=== PATIENT | male | born 1990 | race Caucasian/White ===

== ENCOUNTER 2018-06-06 13:49 | Emergency (ER) | payer OTHER, SELFPAY ==
[2018-06-06 13:53] VITALS: BP 130/74; PULSE 93; RESP 18; TEMP 36.8; O2SAT 100
--- NOTE | 2018-06-06 13:55 | ED.UPPEXIN ---
HPI - Extremity Injury (Upper) General Chief Complaint: Extremity Injury, Upper Stated Complaint: CRUSHED LEFT 1ST FINGER Time Seen by Provider: 06/06/18 13:54 Source: patient Mode of arrival: ambulatory Limitations: no limitations History of Present Illness HPI narrative: Right-hand dominant 28-year-old male here for evaluation of a crush injury to his left index finger. Patient states that it occurred at work just prior to arrival. He states that he cut it on an engine. Unknown last tetanus shot. Wrapped came to the emergency department for evaluation Related Data Previous Rx's Medication Instructions Recorded ciprofloxacin HCl 500 mg PO BID 7 Days #14 tab 06/06/18 Allergies Allergy/AdvReac Type Severity Reaction Status Date / Time Penicillins Allergy Verified 06/06/18 14:00 Review of Systems Constitutional Denies fever(s) Musculoskeletal Comments: Pain left index finger Integumentary/Breasts Comments: Cut to left index finger Neurologic Comments: Some tingling to the tip of left index finger [facility] Medical History Healthy adult (Acute) Surgical History No pertinent past surgical history (Acute) Exam Initial Vital Signs Initial Vital Signs: Vital Signs Temperature 98.2 F 06/06/18 13:53 Pulse Rate 93 H 06/06/18 13:53 Respiratory Rate 18 06/06/18 13:53 Blood Pressure 130/74 06/06/18 13:53 Pulse Oximetry 100 06/06/18 13:53 Const General: cooperative, healthy appearing, comfortable, well developed, well groomed and No acute distress Orientation: alert, awake and oriented x3 HENMT Head: normal to inspection and normocephalic Resp Effort & Inspection: normal respiratory effort Cardio Pulses: radial pulses present on the left Skin Other: 2 cm laceration to the volar aspect over the pad of the left index finger. No active bleeding. Patient also an abrasion to the dorsal aspect of the left index finger just proximal to the nail bed. Neuro Other: Sensation intact however does have some tingling to the tip of his left index finger Extrem Other: Full range of motion of left index finger MCP PIP and PIP joint. Psych Appearance: grossly normal and well kempt Procedures Laceration Repair Laceration 1: Site: hand Side (If applicable): left Size (cm): 2 Description: linear Depth: simple, single layer Local Anesthetic: lidocaine 1% Amount of anesthesia used (mL): 4 Pre-repair: wound explored, irrigated extensively and deep structures intact Skin layer closed with: nylon Size (cm): 5-0 Number of sutures: 3 Technique: simple, interrupted Orthopedic Splinting/Casting Injury #1: Side: left Upper Extremity Injury Location: finger Upper Extremity Immobilizer: finger (other) Course Orders Ordered: ED Orders 06/06/18 13:55 XR hand LT min 3V Stat Discontinued Medications Ciprofloxacin (Cipro) 500 mg PO NOW ONE Stop: 06/06/18 15:01 Vital Signs - 8 hr 06/06/18 13:53 Temperature 98.2 F Pulse Rate 93 H Respiratory Rate 18 Blood Pressure 130/74 Pulse Oximetry 100 MDM - Extremity Injury (Upper) Imaging Data Hand x-ray: Radiologist's impression: [address] [address] XRay Report Signed Patient: Xavier Kessler#: [id number] : 1990Acct:[id number] Age/Sex: 28 / MDate of Service: 06/06/18 Loc: ED Accession Number: [id number] Procedure: XR hand LT min 3V Ordering Provider: Paul Estrada D.O. PROCEDURE: XR HAND LT MIN 3V INDICATIONS: 1st finger injury TECHNIQUE: 3 views of the hand(s) acquired. COMPARISON: None. FINDINGS: Bones: There is a transverse fracture identified through the base of the distal phalanx of the index finger without definite involvement of the articular surface. Volar displacement of the distal fracture fragment is present by approximately 3 mm. No dislocation is evident. No additional fractures are identified. No suspicious osseous lesions are identified. Soft tissues: Soft tissue swelling is noted at the fracture site of the index finger. No unexpected radiopaque foreign bodies are evident. IMPRESSION: Mildly displaced transverse fracture involving the distal phalanx of the index finger. Dictated by: Ken Lund M.D. on 06/06/2018 at 13:45 Approved by: Ken Lund M.D. on 06/06/2018 at 13:47 [facility] Narrative Medical decision making narrative: Patient is vascularly intact. Does sensation to the tip of his finger however is tingling. Does have a distal phalanx fracture. Due to the touch of the skin this is an open fracture. He was given antibiotics here in the emergency department. The wound was irrigated extensively with soap and water. Loosely closed with 3 stitches. Will send home with antibiotics. A splint was placed. Patient was given care instructions. He was given return precautions. He expressed understanding and agreement plan Discharge Plan Departure Patient Disposition: Home Clinical Impression: Finger fracture, left, Laceration of finger Instructions: Laceration Repair, DI for Finger Fracture, How to Take Care of Your Splint Activity Restrictions/Additional Instructions: After couple days he can remove the splint and shower like normal. Until then keep it clean and keep it dry. We need to remove the splint tried to keep your finger straight as possible. Call your primary care doctor for a follow-up. Return to the emergency department for any new or worsening symptoms Prescriptions: New ciprofloxacin HCl 500 mg tablet 500 mg PO BID 7 Days Qty: 14 RF: 0
[2018-06-06] MEDS: CIPROFLOXACIN 500 MG TABLET PO (15:10)
[2018-06-06 15:18] VITALS: BP 128/72; PULSE 70; RESP 18; O2SAT 99
== END 2018-06-06 15:23 | disposition home or self-care (01) ==
PROVIDERS: Emergency Provider Emergency Medicine
DX: S62.631B Displaced fracture of distal phalanx of left index finger, initial encounter for open fracture (principal); W23.0XXA Caught, crushed, jammed, or pinched between moving objects, initial encounter; Y99.0 Civilian activity done for income or pay
CPT/HCPCS: 12001; 73130; 99283